=== PATIENT | female | born 1980 | race American Indian/Alaskan Native ===

== ENCOUNTER 2016-09-26 16:29 | Outpatient (CLI) | payer OTHER, MEDICAID ==
[2016-09-26] MEDS ORDERED: BRETHINE SUB-Q ONE ×2 (19:00→20:00)
[2016-09-26] MEDS ORDERED: LACTATED RINGERS 500 ML IV ONE (19:10)
[2016-09-26 19:25] LABS: Urine Drugs of Abuse Note Disclamer
[2016-09-26 19:47] LABS: Bilirubin,Urine NEG (Negative); Blood,Urine NEG (Negative); Ketones,Urine NEG (Negative); Leukocyte Esterase,Urine NEG (Negative); Nitrite,Urine NEG (Negative); Protein,Urine <15 mg/dL mg/dL (Negative); Urobilinogen,Urine < 2.0 mg/dL (<2.0)
[2016-09-26] MEDS: LACTATED RINGERS 1,000 ML IV SCH (21:30)
[2016-09-26] MEDS: AMBIEN PO PRN (22:00)
--- NOTE | 2016-09-27 07:19 | History and Physical Report ---
History of Present Illness Date of examination: 09/27/16 History of present illness: EDC Confirmation: 11/11/2016 Gestational Age: 14 1/7 weeks Past History : 3 Term Births: 1 Premature Births: 0 Living Children: 1 Para: 1 Mult. Births: 0 Prev : 0 Aborta: 0 Elect. Ab: 0 Spont. Ab: 1 Ectopics: 0 # 1 Delivery date: 2006 Weeks Gestation: 39 labor: no Delivery type: Hours of labor: <1h Anesthesia type: none Delivery location: [place] Sex: Female weight: 6#14 Comments: no pain with labor, arrived 10cms # 2 Delivery date: 2012 Weeks Gestation: "5months" Delivery type: SAB Comments: D&C for SAB Past Medical History: Negative Past Medical History Past Surgical History: positive - mass removed right auxilla Past Medical History Anesthesia Complications: negative Anemia: negative Autoimmune Disorder: negative Bleeding Disorder: negative Blood Transfusions: negative Breast Disease: negative Diabetes: negative Heart Disease: negative Hypertension: negative Hepatitis/Liver Disease: negative Kidney Disease/UTI: negative Neurologic/Epilepsy/Migraines: negative Phlebitis/Varicosities: negative Psychiatric: negative Pulmonary Disease/Asthma: negative Thyroid Disease: negative Hospitalizations: negative Surgery (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 Infection History Hx of STD: none HIV Risk Eval: low risk Hepatitis B Risk Eval: low risk Personal hx. of genital herpes: no Partner hx. of genital herpes: no Rash, Viral, or Febrile illness since last LMP? no Varicella/Chicken Pox Status: Immunized TB Risk: no Genetic History Congenital Heart Defect: Mom: no Dad: no Sussy Disease: Mom: no Dad: no Thalassemia Mom: no Dad: no Neural Tube Defect Mom: no Dad: no Down's Syndrome Mom: no Dad: no Enoch-Sachs Mom: no Dad: no Sickle Cell Disease/Trait Mom: no Dad: no Hemophilia Mom: no Dad: no Muscular Dystrophy Mom: no Dad: no Cystic Fibrosis Mom: no Dad: no Gela Chorea Mom: no Dad: no Mental Retardation Mom: no Dad: no Fragile X Mom: no Dad: no Other Genetic/Chromosomal Disorder Mom: no Dad: no Child w/other defect Mom: no Dad: no Enviromental Exposures Xray Exposure: no Medication, drug, or alcohol use since LMP: no Chemical/Other Exposure: no Exposure to Cat Liter: no Hx of Parvovirus (Fifth Disease): no Occupational Exposure to Children: none Active Medications (reviewed today): None Current Allergies (reviewed today): No known allergies Laboratory Results Routine Urinalysis Leukocytes: negative Nitrite: negative Urobilinogen: negative Protein: negative Blood: negative Ketone: negative Bilirubin: negative Glucose: negative Urine HCG: positive Review of Systems General Denies fever, chills, sweats, anorexia, fatigue, weakness, malaise, weight loss and sleep disorder. Denies nausea, vomiting, headache, swelling of legs, abdominal pain, vaginal discharge, vaginal bleeding and contractions. Denies vaginal discharge, incontinence, dysuria, hematuria, urinary frequency, amenorrhea, menorrhagia, abnormal vaginal bleeding, pelvic pain, genital sores, decreased libido, painful periods, painful sex, urinary urgency, hot flashes, vaginal dryness, vaginal itching and vaginal odor. CV Denies chest pains, palpitations, syncope, dyspnea on exertion, orthopnea, PND and peripheral edema. Resp Denies cough, dyspnea at rest, excessive sputum, hemoptysis, wheezing and pleurisy. GI Denies nausea, vomiting, diarrhea, constipation, change in bowel habits, abdominal pain, melena, hematochezia, jaundice, gas/bloating, indigestion/ heartburn, dysphagia and odynophagia. Endo Denies cold intolerance, heat intolerance, polydipsia, polyphagia, polyuria and unusual weight change. Breast Denies left breast lump, right breast lump, nipple discharge, bloody discharge from nipple, breast pain, abnormal mammogram and breast enlargement. MS Denies back pain, joint pain, joint swelling, muscle cramps, muscle weakness, stiffness, arthritis, sciatica, restless legs, leg pain at night and leg pain with exertion. Derm Denies rash, itching, dryness and suspicious lesions. Neuro Denies paralysis, paresthesias, headache, seizures, tremors, vertigo, transient blindness, frequent falls, frequent headaches and difficulty walking. Psych Denies depression, anxiety, irritability and mood swings. Eyes Denies blurring, diplopia, irritation, discharge, vision loss, eye pain and photophobia. ENT Denies earache, ear discharge, tinnitus, decreased hearing, nasal congestion, nosebleeds, sore throat and hoarseness. Allergy Denies urticaria, allergic rash, hay fever and recurrent infections. Heme Denies abnormal bruising, bleeding and enlarged lymph nodes. 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 Vulva/Vagina: No lesions, normal BUS, normal rugae Cervix: No lesions; no cervical motion tenderness Uterus: normal size and position, midline, mobile Fundal Ht: 16w FHT: + Adnexae: no masses or tenderness Rectovaginal: no masses or tenderness Past History - Obstetrical History Expected Date of Delivery: 11/11/16 Actual Gestation: 33 Week(s) 4 Day(s) : 3 Para: 1 Hx # Term Pregnancies: 1 Spontaneous Abortions: 1 (20 weeks) Number of Living Children: 1 Medications and Allergies Allergies Allergy/AdvReac Type Severity Reaction Status Date / Time No Known Allergies Allergy Unverified 09/26/16 18:24 Active Meds: Active Medications Lactated Ringer's (Lactated Ringers) 1,000 mls @ 75 mls/hr IV DIRECT PAUL Last Admin: 09/26/16 21:30 Dose: 75 mls/hr Zolpidem Tartrate (Ambien) 10 mg PO QHS PRN PRN Reason: Insomnia Last Admin: 09/26/16 22:00 Dose: 10 mg Review of Systems All systems: negative - Vital Signs Vital signs: Vital Signs Pulse Pulse Ox 80 100 09/26/16 17:27 09/26/16 17:27 Temp Pulse Resp BP Pulse Ox 98.0 F 74 18 121/68 97 09/27/16 07:09 09/27/16 07:07 09/26/16 20:45 09/27/16 07:09 09/27/16 07:06 - Physical Exam Breasts: Positive: deferred Cardiovascular: Regular rate, Normal S1, Normal S2 Lungs: Positive: Normal air movement Abdomen: Positive: normal appearance, soft, normal bowel sounds. Negative: distention, tenderness Genitourinary (Female): Positive: normal external genitalia Vulva: both: normal Vagina: Positive: normal moisture. Negative: discharge Cervix: Negative: lesion, discharge Uterus: Positive: normal size, normal contour Adnexa: both: normal Anus/Rectum: Positive: normal perianal skin, heme negative. Negative: rectal mass, hemorrhoids Extremities: Positive: normal Deep Tendon Reflex Grade: Normal +2 - Obstetrical FHR: category 1 Uterine Contraction Monitor Mode: External Cervical Dilatation: 0 (by RN in Triage 09/26/16) Cervical Effacement Percentage: 0 (cervix posterior) station: -4 Uterine Contraction Frequency (min): q5-8 Uterine Contraction Duration: 40 Uterine Contraction Pattern: Regular Uterine Contraction Intensity: Mild Results All other labs normal. Laboratory Data-Patient Name: ALEJANDRA GALICIA Test Date Result Blood Type 05/28/2016 A Rh 05/28/2016 Positive Antibody Screen Rubella 05/28/2016 Serology (RPR) 05/28/2016 HBsAg 05/28/2016 Negative Hemoglobin 08/06/2016 11.9 Hematocrit 08/06/2016 37.3 Platelets 05/28/2016 284 [id number] Chlamydia DNA 05/14/2016 Negative GC DNA/Culture 05/14/2016 Urine Culture 05/28/2016 Final report Group B Strep cult PAP 05/14/2016 Normal, Satisfactory, No endocervical cells HIV 05/28/2016 AFP/Quad Screen 05/28/2016 Glucola Test 3hr GTT (Fasting) 1 hr 2 hr 3 hr [facility]-Patient Name:ALEJANDRA GALICIA Test Date Result Varicella Ab Sickle Cell 05/28/2016 Negative PPD Fibronectin Cystic Fibrosis Parvovirus TSH Free T4 Hepatitis C ALT AST Uric Acid Creatinine 24 hr Urine Protein ANEUDY Assessment and Plan This pt very anxious about contractions due to her previous loss at 20+ weeks. Pt states ctx have not chged in greq but have gotten stronger and that is what made her call and come to Triage yesterday. Today pt states ctx are there but not as painful. This AM UCs are irreg and mild. Pt states she did sleep last night after her Ambien. P: AM care, diet, US for BPP, MORENO, EFW With these results will consult with and make a plan. Pt agrees. All questions addressed.
[2016-09-27] MEDS ORDERED: COLACE PO PRN (08:57)
[2016-09-27] MEDS ORDERED: ROBITUSSIN DM PO PRN (08:57)
[2016-09-27] MEDS ORDERED: ZOFRAN IV PRN (08:57)
[2016-09-27] MEDS ORDERED: SUDAFED PO PRN (08:57)
[2016-09-27] MEDS ORDERED: ALUM-MAG HYDROX-SIMETH 200-200-20MG/5ML PO PRN (08:57)
[2016-09-27] MEDS ORDERED: TYLENOL PO PRN (08:57)
[2016-09-27] MEDS ORDERED: BENADRYL PO PRN (08:57)
--- NOTE | 2016-09-27 09:08 | Progress Note ---
Assessment and Plan After consulting with decision was made to give pt BMZ, continue monitoring, and repeat US MORENO in the AM. Will bolus IVFs and encourage po fluids. US done this AM: MORENO 7; BPP 8/8; Fibroid located in muscle on left side of uterine body [id number] SVE closed posterior Will start Procardia 10mg po Q6Hr Pt agrees with POC Orders in EMR. Re-eval as needed Subjective - Subjective Date of service: 09/27/16 (consulted with Dr. Saunders) Interval history: EDC Confirmation: 11/11/2016 Gestational Age: 14 1/7 weeks Past History : 3 Term Births: 1 Premature Births: 0 Living Children: 1 Para: 1 Mult. Births: 0 Prev : 0 Aborta: 0 Elect. Ab: 0 Spont. Ab: 1 Ectopics: 0 # 1 Delivery date: 2006 Weeks Gestation: 39 labor: no Delivery type: Hours of labor: <1h Anesthesia type: none Delivery location: [place] Infant Sex: Female weight: 6#14 Comments: no pain with labor, arrived 10cms # 2 Delivery date: 2012 Weeks Gestation: "5months" Delivery type: SAB Comments: D&C for SAB Past Medical History: Negative Past Medical History Past Surgical History: positive - mass removed right auxilla Past Medical History Anesthesia Complications: negative Anemia: negative Autoimmune Disorder: negative Bleeding Disorder: negative Blood Transfusions: negative Breast Disease: negative Diabetes: negative Heart Disease: negative Hypertension: negative Hepatitis/Liver Disease: negative Kidney Disease/UTI: negative Neurologic/Epilepsy/Migraines: negative Phlebitis/Varicosities: negative Psychiatric: negative Pulmonary Disease/Asthma: negative Thyroid Disease: negative Hospitalizations: negative 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 Infection History Hx of STD: none HIV Risk Eval: low risk Hepatitis B Risk Eval: low risk Personal hx. of genital herpes: no Partner hx. of genital herpes: no Rash, Viral, or Febrile illness since last LMP? no Varicella/Chicken Pox Status: Immunized TB Risk: no Genetic History Congenital Heart Defect: Mom: no Dad: no Sussy Disease: Mom: no Dad: no Thalassemia Mom: no Dad: no Neural Tube Defect Mom: no Dad: no Down's Syndrome Mom: no Dad: no Enoch-Sachs Mom: no Dad: no Sickle Cell Disease/Trait Mom: no Dad: no Hemophilia Mom: no Dad: no Muscular Dystrophy Mom: no Dad: no Cystic Fibrosis Mom: no Dad: no Gela Chorea Mom: no Dad: no Mental Retardation Mom: no Dad: no Fragile X Mom: no Dad: no Other Genetic/Chromosomal Disorder Mom: no Dad: no Child w/other defect Mom: no Dad: no Enviromental Exposures Xray Exposure: no Medication, drug, or alcohol use since LMP: no Chemical/Other Exposure: no Exposure to Cat Liter: no Hx of Parvovirus (Fifth Disease): no Occupational Exposure to Children: none Active Medications (reviewed today): None Current Allergies (reviewed today): No known allergies Laboratory Results Routine Urinalysis Leukocytes: negative Nitrite: negative Urobilinogen: negative Protein: negative Blood: negative Ketone: negative Bilirubin: negative Glucose: negative Urine HCG: positive Review of Systems General Denies fever, chills, sweats, anorexia, fatigue, weakness, malaise, weight loss and sleep disorder. Denies nausea, vomiting, headache, swelling of legs, abdominal pain, vaginal discharge, vaginal bleeding and contractions. Denies vaginal discharge, incontinence, dysuria, hematuria, urinary frequency, amenorrhea, menorrhagia, abnormal vaginal bleeding, pelvic pain, genital sores, decreased libido, painful periods, painful sex, urinary urgency, hot flashes, vaginal dryness, vaginal itching and vaginal odor. CV Denies chest pains, palpitations, syncope, dyspnea on exertion, orthopnea, PND and peripheral edema. Resp Denies cough, dyspnea at rest, excessive sputum, hemoptysis, wheezing and pleurisy. GI Denies nausea, vomiting, diarrhea, constipation, change in bowel habits, abdominal pain, melena, hematochezia, jaundice, gas/bloating, indigestion/ heartburn, dysphagia and odynophagia. Endo Denies cold intolerance, heat intolerance, polydipsia, polyphagia, polyuria and unusual weight change. Breast Denies left breast lump, right breast lump, nipple discharge, bloody discharge from nipple, breast pain, abnormal mammogram and breast enlargement. MS Denies back pain, joint pain, joint swelling, muscle cramps, muscle weakness, stiffness, arthritis, sciatica, restless legs, leg pain at night and leg pain with exertion. Derm Denies rash, itching, dryness and suspicious lesions. Neuro Denies paralysis, paresthesias, headache, seizures, tremors, vertigo, transient blindness, frequent falls, frequent headaches and difficulty walking. Psych Denies depression, anxiety, irritability and mood swings. Eyes Denies blurring, diplopia, irritation, discharge, vision loss, eye pain and photophobia. ENT Denies earache, ear discharge, tinnitus, decreased hearing, nasal congestion, nosebleeds, sore throat and hoarseness. Allergy Denies urticaria, allergic rash, hay fever and recurrent infections. Heme Denies abnormal bruising, bleeding and enlarged lymph nodes. 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/Vagina: No lesions, normal BUS, normal rugae Cervix: No lesions; no cervical motion tenderness Uterus: normal size and position, midline, mobile Fundal Ht: 16w FHT: + Adnexae: no masses or tenderness Rectovaginal: no masses or tenderness Patient reports: movement normal, contractions (continue but less painful) Objective - Vital Signs Vital Signs: Vital Signs - 12hr 09/27/16 09/27/16 09/27/16 00:06 00:11 00:16 Temperature Pulse Rate 102 H 102 H 100 H Blood Pressure Blood Pressure [Left Arm] O2 Sat by Pulse 99 96 97 Oximetry 09/27/16 09/27/16 09/27/16 00:21 00:22 00:26 Temperature Pulse Rate 95 H 97 H 96 H Blood Pressure Blood Pressure [Left Arm] O2 Sat by Pulse 96 94 95 Oximetry 0109/27/16 09/27/16 00:31 00:36 00:38 Temperature Pulse Rate 110 H 94 H 99 H Blood Pressure Blood Pressure [Left Arm] O2 Sat by Pulse 95 97 94 Oximetry 09/27/16 09/27/16 09/27/16 00:41 00:44 00:47 Temperature Pulse Rate 97 H 114 H 102 H Blood Pressure Blood Pressure [Left Arm] O2 Sat by Pulse 94 83 L 96 Oximetry 09/27/16 09/27/16 09/27/16 01:11 01:16 01:26 Temperature Pulse Rate 85 93 H 94 H Blood Pressure Blood Pressure [Left Arm] O2 Sat by Pulse 97 98 95 Oximetry 09/27/16 09/27/16 09/27/16 01:31 01:36 01:41 Temperature Pulse Rate 83 84 89 Blood Pressure Blood Pressure [Left Arm] O2 Sat by Pulse 97 97 97 Oximetry 09/27/16 09/27/16 09/27/16 01:46 01:51 01:56 Temperature Pulse Rate 87 89 85 Blood Pressure Blood Pressure [Left Arm] O2 Sat by Pulse 97 97 96 Oximetry 09/27/16 09/27/16 09/27/16 02:01 02:06 02:11 Temperature Pulse Rate 86 85 82 Blood Pressure Blood Pressure [Left Arm] O2 Sat by Pulse 96 96 96 Oximetry 09/27/16 09/27/16 09/27/16 02:16 02:21 02:26 Temperature Pulse Rate 85 89 86 Blood Pressure Blood Pressure [Left Arm] O2 Sat by Pulse 96 96 95 Oximetry 09/27/16 09/27/16 09/27/16 02:31 02:36 02:41 Temperature Pulse Rate 83 85 85 Blood Pressure Blood Pressure [Left Arm] O2 Sat by Pulse 96 96 96 Oximetry 09/27/16 09/27/16 09/27/16 02:46 02:51 02:56 Temperature Pulse Rate 85 83 80 Blood Pressure Blood Pressure [Left Arm] O2 Sat by Pulse 95 96 96 Oximetry 09/27/16 09/27/16 09/27/16 03:01 03:06 03:11 Temperature Pulse Rate 76 87 83 Blood Pressure Blood Pressure [Left Arm] O2 Sat by Pulse 96 96 95 Oximetry 09/27/16 09/27/16 09/27/16 03:16 03:21 03:26 Temperature Pulse Rate 78 77 82 Blood Pressure Blood Pressure [Left Arm] O2 Sat by Pulse 95 96 96 Oximetry 09/27/16 09/27/16 09/27/16 03:31 03:36 03:41 Temperature Pulse Rate 84 84 83 Blood Pressure Blood Pressure [Left Arm] O2 Sat by Pulse 96 93 91 Oximetry 09/27/16 09/27/16 09/27/16 03:51 03:56 04:18 Temperature Pulse Rate 77 78 80 Blood Pressure Blood Pressure [Left Arm] O2 Sat by Pulse 94 92 94 Oximetry 09/27/16 09/27/16 09/27/16 04:19 04:23 04:24 Temperature Pulse Rate 81 92 H 88 Blood Pressure Blood Pressure [Left Arm] O2 Sat by Pulse 94 95 94 Oximetry 09/27/16 09/27/16 09/27/16 05:10 05:11 05:15 Temperature Pulse Rate 84 92 H 81 Blood Pressure Blood Pressure [Left Arm] O2 Sat by Pulse 95 94 95 Oximetry 09/27/16 09/27/16 09/27/16 05:17 05:20 05:25 Temperature Pulse Rate 84 81 78 Blood Pressure Blood Pressure [Left Arm] O2 Sat by Pulse 94 95 94 Oximetry 09/27/16 09/27/16 09/27/16 05:27 05:30 05:35 Temperature Pulse Rate 88 84 80 Blood Pressure Blood Pressure [Left Arm] O2 Sat by Pulse 94 95 95 Oximetry 09/27/16 09/27/16 09/27/16 05:40 05:45 07:06 Temperature Pulse Rate 77 79 76 Blood Pressure Blood Pressure [Left Arm] O2 Sat by Pulse 95 95 97 Oximetry 09/27/16 09/27/16 09/27/16 07:07 07:09 08:35 Temperature 98.0 F Pulse Rate 74 75 Blood Pressure 121/68 130/83 Blood Pressure 121/68 [Left Arm] O2 Sat by Pulse Oximetry 09/27/16 09/27/16 08:36 08:56 Temperature Pulse Rate 76 Blood Pressure 121/72 Blood Pressure 130/83 [Left Arm] O2 Sat by Pulse Oximetry - Exam Breasts: deferred Cardiovascular: Regular rate Lungs: Normal air movement Abdomen: Present: normal appearance, soft Uterus: Present: normal FHR: category 1 Uterine Contraction Monitor Mode: External Cervical Dilatation: 0 Cervical Effacement Percentage: 0 station: -4 Uterine Contraction Pattern: Irregular Uterine Contraction Intensity: Mild Extremities: normal Deep Tendon Reflex Grade: Normal +2 - Labs Labs: Laboratory Results - last 24 hr 09/26/16 09/26/16 18:45 19:20 Urine Color Yellow Urine Turbidity Clear Urine pH 6.0 Ur Specific [place] 1.008 Urine Protein <15 mg/dl Urine Glucose (UA) 50 Urine Ketones Neg Urine Blood Neg Urine Nitrite Neg Urine Bilirubin Neg Urine Urobilinogen < 2.0 Ur Leukocyte Esterase Neg Urine WBC (Auto) 1.0 Urine RBC (Auto) 1.0 U Epithel Cells (Auto) < 1.0 Urine Opiates Screen Presumptive negative Urine Methadone Screen Presumptive negative Ur Barbiturates Screen Presumptive negative Ur Phencyclidine Scrn Presumptive negative Ur Amphetamines Screen Presumptive negative U Benzodiazepines Scrn Presumptive negative Urine Cocaine Screen Presumptive negative U Marijuana (THC) Screen Presumptive negative Drugs of Abuse Note Disclamer
[2016-09-27] MEDS: CELESTONE SOLUSPAN IM SCH (09:17)
[2016-09-27] MEDS: PROCARDIA*For Tocolysis only PO SCH ×3 (09:19→21:23)
[2016-09-27] MEDS: LACTATED RINGERS 1,000 ML IV SCH ×2 (09:20→13:37)
--- NOTE | 2016-09-27 09:48 | Event Note ---
Date: 09/27/16 Pt admitted overnight for contractions. While she has had no cx change she does continue to have contractions and does have h/o previous delivery. Will con't admission at this time and administer steroids and start oral tocolytic. pt does have fibroid which was noted on songram. D/c home in the am after second does of steroids and if no cervical change.
[2016-09-27] MEDS: PRENATAL VITAMIN PO SCH (10:21)
--- NOTE | 2016-09-27 10:43 | Ultrasound Report ---
BIOPHYSICAL PROFILE: Technique: Transabdominal ultrasound with Doppler interrogation. 2 - breathing movements 2 - movements 2 - posture and tone 2 - Qualitative amniotic fluid volume 8 - TOTAL SCORE OF POSSIBLE 8 Heart Rate (bpm) 145
[2016-09-27 11:03] LABS: Basophils % (Auto) 0.1 % (0.0-1.8); Eosinophils % (Auto) 3.5 % (0.0-4.3); Hematocrit 35.2 % (30.3-42.9); Hemoglobin 11.6 gm/dl (10.1-14.3); Mean Corpuscular HGB Conc 33 % (30-34); Mean Corpuscular Hemoglobin 31 pg (28-32); Mean Corpuscular Volume 94 fl (79-97); Platelet Count 201 K/mm3 (140-440); Red Blood Count 3.76 M/mm3 (3.65-5.03); Red Cell Distribution Width 12.8 % (13.2-15.2); White Blood Count 7.5 K/mm3 (4.5-11.0)
[2016-09-28] MEDS: AMBIEN PO PRN (03:04)
[2016-09-28] MEDS: PROCARDIA*For Tocolysis only PO SCH ×2 (03:04→09:50)
[2016-09-28 07:33] VITALS: BP 117/68
[2016-09-28] MEDS: PRENATAL VITAMIN PO SCH (09:50)
[2016-09-28] MEDS: CELESTONE SOLUSPAN IM SCH (09:51)
--- NOTE | 2016-09-28 10:07 | Ultrasound Report ---
OB ULTRASOUND: TECHNIQUE: Transabdominal ultrasound with Doppler interrogation. Gestation: hayes Position: cephalic Amniotic Fluid: WNL (7-24 cm) MORENO = 7.0 cm Placenta: anterior Placental Grade: 0 Heart Rate: 143 BPM BPD: 8.2 cm = 33 w 0 d HC: 30.6 cm = 34 w 1 d AC: 29.9 cm = 33 w 6 d FL: 6.8 cm = 34 w 6 d HC/AC Ratio: 1.03 Cephalic Index: 79.2 Estimated Weight: 2344 grams (5 lb. 3 oz.) Clinical age = 33 w 4 d EDC: 17 US Gest. Age = 34 w 0 d EDC: 17 COMMENT: A heterogeneous fibroid measuring 5.6 x 4.1 x 5.3 cm is noted in the anterior uterine wall.
--- NOTE | 2016-09-28 10:58 | Ultrasound Report ---
OB LIMITED History: Oligohydramnios. Technique: Transabdominal ultrasound with Doppler interrogation. Gestation: Single Position: Cephalic Amniotic Fluid: Normal MORENO = 9.4 cm Heart Rate: 141 BPM
--- NOTE | 2016-09-28 11:34 | Discharge Summary ---
Providers - Providers Date of discharge: 09/28/16 Attending physician: DARNELL MCKEON Primary care physician: DARNELL MCKEON Hospitalization Reason for admission: contractions at 34 weeks Condition: Fair Pertinent studies: uterine monitoring MORENO--repeat was 9.5, BPP 8/8, tx with Procardia Procedures: monitoring and MORENO and U/S Hospital course: Pt at 34 weeks with painful contractions and history of prior loss. Pt admitted overnight for contractions. While she has had no cx change she does continue to have contractions and does have h/o previous delivery. Will con't admission at this time and administer steroids and start oral tocolytic. pt does have fibroid which was noted on songram. D/c home in the am after second does of steroids and if no cervical change. Repeat MORENO was 9/5, min contractions now and d/c post steroids x 2. RTO 1 week. ProcardiaXL 30mg daily to inhibit contractions. Disposition: DISCHARGED TO HOME OR SELFCARE Core Measure Documentation - Palliative Care Palliative Care/ Comfort Measures: Not Applicable - Core Measures Any of the following diagnoses?: none Exam - Constitutional Vitals: Temp Pulse Resp BP Pulse Ox 97.7 F 86 20 117/68 96 09/28/16 07:36 09/28/16 07:57 09/28/16 07:36 09/28/16 07:36 09/28/16 07:57 General appearance: Present: no acute distress - Respiratory Respiratory effort: normal - Extremities Extremities: no ischemia, No edema - Abdominal General gastrointestinal: Present: soft, non-tender Female genitourinary: Present: deferred - Rectal Rectal Exam: deferred - Integumentary Integumentary: Present: clear, warm, dry - Musculoskeletal Musculoskeletal: strength equal bilaterally - Psychiatric Psychiatric: appropriate mood/affect - Neurologic Neurologic: CNII-XII intact Plan Activity: no restrictions Weight Bearing Status: Full Weight Bearing Diet: regular Follow up with: DARNELL MCKEON MD [Primary Care Provider] - 7 Days Prescriptions: NIFEdipine XL [Procardia Xl] 30 mg PO QDAY #30 tablet
== END 2016-09-28 13:04 | disposition home or self-care (01) ==
LOC: TRG 16:29 → LD 20:30 → TRG 09-28 13:04
PROVIDERS: ATTEND Obstetrics & Gynecology
DX: O41.03X0 Oligohydramnios, third trimester, not applicable or unspecified (principal); O47.03 False labor before 37 completed weeks of gestation, third trimester; Z3A.34 34 weeks gestation of pregnancy
CPT/HCPCS: 36415; 59025; 76815; 81001; 85025; 96360; G0479; J0702; J3105; J7120; 76816; 76819; 80307

== ENCOUNTER 2016-11-06 23:48 | Inpatient (IN) | payer OTHER, MEDICAID ==
[2016-11-07] MEDS ORDERED: POLYCILLIN/NS 2 GM/100 ML 2 GM/100 ML BAG IV ONE (00:23)
[2016-11-07] MEDS ORDERED: MILK OF MAGNESIA PO PRN (00:58)
[2016-11-07] MEDS ORDERED: LANSINOH TP PRN (00:58)
[2016-11-07] MEDS ORDERED: ZOFRAN IV PRN (00:58)
[2016-11-07] MEDS ORDERED: DERMOPLAST TP PRN (00:58)
[2016-11-07] MEDS ORDERED: NORCO 5/325 PO PRN (00:58)
[2016-11-07] MEDS ORDERED: TUCKS PAD TP PRN (00:58)
[2016-11-07] MEDS ORDERED: PHENERGAN PO PRN (00:58)
[2016-11-07] MEDS ORDERED: TYLENOL PO PRN (00:58)
[2016-11-07] MEDS ORDERED: DULCOLAX PR PRN (00:58)
[2016-11-07] MEDS ORDERED: BENADRYL PO PRN (00:58)
[2016-11-07] MEDS ORDERED: SODIUM CHLORIDE FLUSH SYRINGE 10 ML IV PRN (01:00)
[2016-11-07] MEDS ORDERED: PITOCin/NS 20 UNIT/1000ML DRIP 20 UNIT/1,000 ML BAG IV SCH (01:00)
--- NOTE | 2016-11-07 01:06 | History and Physical Report ---
History of Present Illness Date of examination: 11/07/16 Date of admission: 11/07/16 00:55 Chief complaint: Labor and SROM @ 2330 @ 39+3 weeks - precipitous del within 10 minutes of arrival to hospital. History of present illness: EDC Confirmation: 11/11/2016 Past History : 3 Term Births: 1 Premature Births: 0 Living Children: 1 Para: 1 Mult. Births: 0 Prev : 0 Aborta: 0 Elect. Ab: 0 Spont. Ab: 1 Ectopics: 0 # 1 Delivery date: 2006 Weeks Gestation: 39 labor: no Delivery type: Hours of labor: <1h Anesthesia type: none Delivery location: [place] Infant Sex: Female weight: 6#14 Comments: no pain with labor, arrived 10cms # 2 Delivery date: 2012 Weeks Gestation: "5months" Delivery type: SAB Comments: D&C for SAB Past Medical History: Negative Past Medical History Past Surgical History: positive - mass removed right auxilla Past Medical History Anesthesia Complications: negative Anemia: negative Autoimmune Disorder: negative Bleeding Disorder: negative Blood Transfusions: negative Breast Disease: negative Diabetes: negative Heart Disease: negative Hypertension: negative Hepatitis/Liver Disease: negative Kidney Disease/UTI: negative Neurologic/Epilepsy/Migraines: negative Phlebitis/Varicosities: negative Psychiatric: negative Pulmonary Disease/Asthma: negative Thyroid Disease: negative Hospitalizations: negative Surgery (Non-cst): positive - mass removed right auxilla Abnormal PAP: negative SETH Exposure: negative Infertility: negative Uterine Anomaly: negative Uterine Surgery (not C/S): negative Other Gynecologic Problems: negative Social Hx: Patient is Smoking History: Patient has never smoked. Infection History Hx of STD: none HIV Risk Eval: low risk Hepatitis B Risk Eval: low risk Personal hx. of genital herpes: no Partner hx. of genital herpes: no Rash, Viral, or Febrile illness since last LMP? no Varicella/Chicken Pox Status: Immunized TB Risk: no Genetic History Congenital Heart Defect: Mom: no Dad: no Sussy Disease: Mom: no Dad: no Thalassemia Mom: no Dad: no Neural Tube Defect Mom: no Dad: no Down's Syndrome Mom: no Dad: no Enoch-Sachs Mom: no Dad: no Sickle Cell Disease/Trait Mom: no Dad: no Hemophilia Mom: no Dad: no Muscular Dystrophy Mom: no Dad: no Cystic Fibrosis Mom: no Dad: no [place] Chorea Mom: no Dad: no Mental Retardation Mom: no Dad: no Fragile X Mom: no Dad: no Other Genetic/Chromosomal Disorder Mom: no Dad: no Child w/other defect Mom: no Dad: no Enviromental Exposures Xray Exposure: no Medication, drug, or alcohol use since LMP: no Chemical/Other Exposure: no Exposure to Cat Liter: no Hx of Parvovirus (Fifth Disease): no Occupational Exposure to Children: none Active Medications (reviewed today): None Current Allergies (reviewed today): No known allergies Past History Past Medical History: no pertinent history - Obstetrical History Expected Date of Delivery: 11/11/16 Actual Gestation: 39 Week(s) 3 Day(s) : 3 Para: 1 Hx # Term Pregnancies: 1 Number of Pregnancies: 0 Spontaneous Abortions: 1 Induced : 0 Number of Living Children: 1 Medications and Allergies Allergies Allergy/AdvReac Type Severity Reaction Status Date / Time No Known Allergies Allergy Unverified 09/26/16 18:24 Home Medications Medication Instructions Recorded Confirmed Last Taken Type NIFEdipine XL [Procardia Xl] 30 mg PO QDAY #30 tablet 09/28/16 Unknown Rx Active Meds: Active Medications Acetaminophen (Tylenol) 650 mg PO Q4H PRN PRN Reason: Pain MILD(1-3)/Fever >100.5/COLE Acetaminophen/Hydrocodone Bitart ([place] 5/325) 2 each PO Q6H PRN PRN Reason: Pain, Moderate (4-6) Benzocaine/Menthol (Dermoplast) 1 spray TP PRN PRN PRN Reason: Episiotomy Pain Bisacodyl (Dulcolax) 10 mg MS BID PRN PRN Reason: Constipation Diphenhydramine HCl (Benadryl) 25 mg PO Q6H PRN PRN Reason: Itching Diphtheria/Tetanus/Acell Pertussis (Boostrix) 0.5 ml IM .ONCE ONE Stop: 11/08/16 00:59 Ampicillin Sodium (Polycillin/Ns 2 Gm/100 Ml) 2 gm in 100 mls @ 100 mls/hr IV ONCE ONE PRN Reason: Protocol Stop: 11/07/16 01:22 Oxytocin/Sodium Chloride (Pitocin/Ns 20 Unit/1000ml Drip) 1,000 mls @ 250 mls/ hr IV TITR PAUL Ibuprofen (Motrin) 600 mg PO Q6H PAUL Magnesium Hydroxide (Milk Of Magnesia) 30 ml PO HS PRN PRN Reason: Constipation Multi-Ingredient Ointment (Lansinoh) 1 applic TP PRN PRN PRN Reason: Sore Nipples Ondansetron HCl (Zofran) 4 mg IV Q8H PRN PRN Reason: Nausea And Vomiting Promethazine HCl (Phenergan) 25 mg PO Q6H PRN PRN Reason: Nausea And Vomiting Sodium Chloride (Sodium Chloride Flush Syringe 10 Ml) 10 ml IV PRN NR Witch Justa/Glycerin (Tucks Pad) 1 each TP PRN PRN PRN Reason: Hemorrhoid/cleansing/soothing Review of Systems All systems: negative - Vital Signs Vital signs: Vital Signs Pulse BP 102 H 144/86 11/07/16 00:53 11/07/16 00:53 Temp Pulse Resp BP Pulse Ox 102 H 144/86 11/07/16 00:53 11/07/16 00:53 Results All other labs normal. Laboratory Data-Patient Name: ALEJANDRA GALICIA Test Date Result Blood Type 05/28/2016 A Rh 05/28/2016 Positive Antibody Screen negative Rubella 05/28/2016 Immune Serology (RPR) 10/06/2016 nonreactive HBsAg 05/28/2016 Negative Hemoglobin 08/06/2016 11.9 Hematocrit 08/06/2016 37.3 Platelets 05/28/2016 284 [id number] Chlamydia DNA 10/06/2016 Negative GC DNA/Culture 10/06/2016 Urine Culture 05/28/2016 Final report Group B Strep cult 10/06/2016 Positive PAP 05/14/2016 Normal, Satisfactory, No endocervical cells HIV 10/06/2016 Negative AFP/Quad Screen 05/28/2016 Glucola Test 3hr GTT (Fasting) 1 hr 2 hr 3 hr [facility]-Patient Name:ALEJANDRA GALICIA Test Date Result Varicella Ab Sickle Cell 05/28/2016 Negative PPD Fibronectin Cystic Fibrosis Parvovirus TSH Free T4 Hepatitis C ALT AST Uric Acid Creatinine 24 hr Urine Protein ANEUDY Assessment and Plan Patient arrived to unit 7cm and rapidly proceeded to deliver, nurse del infant. Mother and stable. untreated GBS d/t precipitous labor and delivery - Patient Problems (1) GBS carrier Current Visit: Yes Status: Acute Plan to address problem: unable to be treated with IV antibiotics d/t rapid delivery (2) (normal spontaneous vaginal delivery) Current Visit: Yes Status: Acute
--- NOTE | 2016-11-07 01:12 | Procedure Note ---
OB Delivery Note - Delivery Date of Delivery: 11/07/16 Clearing Hand: ANAJNA CAMP Estimated blood loss: 300cc - Vaginal Delivery presentation: vertex Delivery position: OA Intrapartum events: precipitous labor- <3hr Delivery induction: none Delivery monitor: external FHT, external uterine Route of delivery: Delivery placenta: spontaneous Delivery cord: 3 umbilical vessels Episiotomy: none Delivery laceration: none Anesthesia: none Delivery comments: precipitous del male infant over intact perineum, skin to skin. I arrived to del placenta - intact and complete. no lacerations. Mother and LDR stable. Apgars 8/9, wt 7#15oz, EBL 300. - A at 1 minute: 8 at 5 minutes: 9 Gender: Male (7#15oz)
[2016-11-07 02:31] LABS: Basophils % (Auto) 0.2 % (0.0-1.8); Eosinophils % (Auto) 0.5 % (0.0-4.3); Hematocrit 39.6 % (30.3-42.9); Hemoglobin 13.1 gm/dl (10.1-14.3); Mean Corpuscular HGB Conc 33 % (30-34); Mean Corpuscular Hemoglobin 31 pg (28-32); Mean Corpuscular Volume 92 fl (79-97); Platelet Count 210 K/mm3 (140-440); Red Cell Distribution Width 13.9 % (13.2-15.2); White Blood Count 9.1 K/mm3 (4.5-11.0)
[2016-11-07 03:06] LABS: Bilirubin,Urine NEG (Negative); Blood,Urine LG (Negative); Ketones,Urine TR mg/dL (Negative); Leukocyte Esterase,Urine TR (Negative); Nitrite,Urine NEG (Negative); Urobilinogen,Urine < 2.0 mg/dL (<2.0)
[2016-11-07 03:09] LABS: RBC,Urine > 182.0 /HPF (0.0-6.0)
[2016-11-07 03:31] LABS: Alanine Aminotransferase 15 units/L (7-56)
[2016-11-07 03:55] LABS: Lactate Dehydrogenase 165 units/L (91-180); Uric Acid 2.5 mg/dL (3.5-7.6)
[2016-11-07] MEDS: MOTRIN PO SCH ×4 (05:10→20:30)
[2016-11-07 15:11] LABS: Hematocrit 34.9 % (30.3-42.9); Hemoglobin 11.8 gm/dl (10.1-14.3)
[2016-11-08] MEDS: MOTRIN PO SCH ×4 (00:15→18:56)
[2016-11-08] MEDS ORDERED: BOOSTRIX IM ONE (06:00)
--- NOTE | 2016-11-08 08:02 | Progress Note ---
Assessment and Plan - Patient Problems (1) (normal spontaneous vaginal delivery) Onset Date: ~11/07/16 Current Visit: Yes Status: Acute Plan to address problem: Pt in good spirits this AM Resting w/o complaint VSS FF below umb Lochia small Perineum intact. H&H Doing well s/p vag delivery. P: continue pathway. Due to precipitous nature of delivery pt was not treated for known GBS Baby must remain in house 48 hours. Plan d/c tomorrow Subjective - Subjective Date of service: 11/08/16 (Baby must stay 48hr; untreated GBS) Patient reports: appetite normal, voiding normally, pain well controlled, ambulating normally [place]: doing well Objective - Vital Signs Latest vital signs: Vital Signs Temp Pulse Resp BP 11/08/16 01:00 98.1 F 80 20 116/66 11/07/16 16:40 97.5 F L 86 18 100/52 Intake and Output 11/07/16 11/08/16 11/08/16 22:59 06:59 14:59 Intake Total 960 960 Balance 960 960 Intake: Oral 720 Intake, Free Water 240 960 Other: Total, Intake Amount 480 # Voids Void 1 2 # Bowel Movements 1 - Exam Breasts: Present: Cardiovascular: Present: Regular rate Lungs: Present: Clear to auscultation, Normal air movement Abdomen: Present: normal appearance, soft, normal bowel sounds Vulva: both: normal Uterus: Present: normal, firm, fundal height below umbilicus Extremities: Present: normal Deep Tendon Reflex Grade: Normal +2 Incision: Present: normal
[2016-11-09] MEDS: MOTRIN PO SCH ×2 (00:30→06:00)
--- NOTE | 2016-11-09 08:44 | Discharge Summary ---
Providers - Providers Date of Admission: 11/07/16 00:55 Date of discharge: 11/09/16 Attending physician: LARA GERARDO 11/07/16 00:59 Consult to Rig Mechanic [CONS] Routine Reason For Exam: assistance with , SNS Primary care physician: DARNELL MCKEON Hospitalization Reason for admission: active labor (precipitous delivery) Delivery: Episiotomy: none Laceration: none Other procedures: none complications: none Discharge diagnosis: IUP at term delivered [place] baby: male (7#15oz 8/9) Hospital course: Did well , Hct 34, MBT A+ Condition at discharge: Good Disposition: DISCHARGED TO HOME OR SELFCARE - Discharge Diagnoses (1) (normal spontaneous vaginal delivery) Status: Acute (2) GBS carrier Status: Acute (3) Precipitate labor, with delivery Status: Acute Plan - Discharge Medications Prescriptions: Ibuprofen [Motrin 800 MG tab] 800 mg PO Q8HR PRN #30 tablet PRN Reason: Pain Lidocain2.5%/Prilocai2.5% [Emla] 5 gm TP ONCE PRN #1 tube PRN Reason: Pain - Provider Discharge Summary Activity: routine, no sex for 6 weeks, no heavy lifting 4 weeks, no strenuous exercise Diet: routine Additional instructions: [] Smoking cessation referral if applicable(refer to patient education folder for contact #) [] Refer to [facility] Booklet Call your doctor immediately for: * Fever > 100.5 * Heavy vaginal bleeding ( >1 pad per hour) * Severe persistent headache * Shortness of breath * Reddened, hot, painful area to leg or breast * Drainage or odor from incision. * Keep incision clean and dry at all times and follow doctor's instructions regarding bathing/showering - Follow up plan Follow up: DARNELL MCKEON MD [Primary Care Provider] - 7 Days
[2016-11-09 13:59] VITALS: BP 110/68
== END 2016-11-09 14:00 | disposition home or self-care (01) | DRG 775 ==
LOC: TRG 23:48 → LD 11-07 00:55 → OB 11-07 03:23
PROVIDERS: ADMIT Obstetrics & Gynecology; ATTEND Obstetrics & Gynecology
PROC: 10E0XZZ Delivery of Products of Conception, External Approach (ICD-10-PCS; principal; 2016-11-07)
DX: O62.3 Precipitate labor (principal); Z37.0 Single live birth; Z3A.39 39 weeks gestation of pregnancy; O99.824 Streptococcus B carrier state complicating childbirth
CPT/HCPCS: 36415; 81001; 82565; 83615; 84450; 84460; 84550; 85014; 85018; 85025; 86592; 86850; 86870; 86900; 86901; 99211; A6250; G0463